=== PATIENT | male | born 1970 | race Caucasian/White ===

== ENCOUNTER 2019-08-21 18:30 | Emergency (ER) | payer OTHER ==
[2019-08-21 18:35] VITALS: BP 141/93; PULSE 80
[2019-08-21 19:19] LABS: CHLORIDE,CL 100 mmol/L (98-107); SODIUM,NA 138 mmol/L (136-145)
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
== END 2019-08-21 20:40 | disposition home or self-care (01) ==
LOC: LL.ED 18:30 → SUPCPDRO 18:30 → LL.ED 20:40
DX: J40 Bronchitis, not specified as acute or chronic (principal); I10 Essential (primary) hypertension; E66.9 Obesity, unspecified; Z79.899 Other long term (current) drug therapy
CPT/HCPCS: 36415; 71046; 80048; 85025; 99284-25

== ENCOUNTER 2021-03-11 07:44 | Emergency (ER) | payer OTHER, MEDICAID ==
[2021-03-11] MEDS ORDERED: Sodium Chloride 0.9% 10 ML Syringe FLUSH PRN (08:04)
[2021-03-11] MEDS ORDERED: HYDROmorphone 1 MG/ML Syringe IVPUSH ONE (08:05)
[2021-03-11] MEDS ORDERED: Ondansetron 4 MG/2 ML SDV IVPUSH ONE (08:05)
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
[2021-03-11] MEDS ORDERED: Iopamidol 612 MG/ML 100 ML Bottle IVPUSH ONE (08:38)
[2021-03-11] MEDS ORDERED: Iopamidol 612 MG/ML 100 ML Bottle ONE (08:40)
[2021-03-11 08:52] LABS: CHLORIDE,CL 105 mmol/L (98-107); SODIUM,NA 138 mmol/L (136-145)
[2021-03-11 10:16] VITALS: BP 158/78; PULSE 55
== END 2021-03-11 11:05 | disposition home or self-care (01) ==
LOC: LL.ED 07:44
DX: K42.9 Umbilical hernia without obstruction or gangrene (principal); I10 Essential (primary) hypertension; E66.9 Obesity, unspecified; Z68.41 Body mass index [BMI] 40.0-44.9, adult; Z79.899 Other long term (current) drug therapy; Z87.891 Personal history of nicotine dependence
CPT/HCPCS: 36415; 74177; 80053; 83605; 85025; 85610; 96374; 96375; 99284; 99284-25; J1170; J2405; Q9967

== ENCOUNTER 2021-03-15 10:07 | Emergency (ER) | payer OTHER, MEDICAID ==
[2021-03-15 10:16] VITALS: BP 153/86; PULSE 80
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
== END 2021-03-15 10:40 | disposition home or self-care (01) ==
LOC: LL.ED 10:07
DX: K42.9 Umbilical hernia without obstruction or gangrene (principal); J44.0 Chronic obstructive pulmonary disease with (acute) lower respiratory infection; M89.49 Other hypertrophic osteoarthropathy, multiple sites; K21.9 Gastro-esophageal reflux disease without esophagitis; F41.8 Other specified anxiety disorders; I10 Essential (primary) hypertension; E66.9 Obesity, unspecified; Z87.891 Personal history of nicotine dependence; Z68.41 Body mass index [BMI] 40.0-44.9, adult
CPT/HCPCS: 99283; 99284

== ENCOUNTER 2025-07-18 11:26 | Emergency (ER) | payer OTHER ==
[2025-07-18] MEDS: Tetracaine HCl/PF 0.5% 4 ML Bottle EYERT ONE (11:30)
[2025-07-18 12:00] VITALS: BP 123/71; PULSE 66
== END 2025-07-18 11:45 | disposition home or self-care (01) ==
LOC: LL.ED 11:26
DX: S05.01XA Injury of conjunctiva and corneal abrasion without foreign body, right eye, initial encounter (principal); I10 Essential (primary) hypertension; J44.9 Chronic obstructive pulmonary disease, unspecified; Z90.49 Acquired absence of other specified parts of digestive tract; Z86.16 Personal history of COVID-19; Z79.899 Other long term (current) drug therapy; W22.8XXA Striking against or struck by other objects, initial encounter
CPT/HCPCS: 99283; J3490